=== PATIENT | female | born 1990 | race Caucasian/White ===

== ENCOUNTER 2022-05-21 06:38 | Inpatient (IN) ==
[2022-05-21] MEDS: Ringers Solution, Lactated 1,000 ML IVC SCH ×3 (05:16→15:14)
[2022-05-21 05:38] LABS: Basophils % 0.1 %; Eosinophils % 0.4 %; Hematocrit 37.6 % (35.3-44.9); Hemoglobin 11.8 g/dL (11.5-15.4); Immature Granulocytes % 0.6 % (0-4); Lymphocytes % 10.9 %; Mean Corpuscular HGB Conc 31.4 g/dL (31.6-35.5); Mean Corpuscular Volume 79.7 fL (83.0-100.0); Mean Platelet Volume 10.9 fL (9.4-12.4); Monocytes # 0.5 K/mcL (0.0-1.3); Monocytes % 5.9 %; Neutrophils # 7.4 K/mcL (1.6-8.9); Platelet Count 237 K/mcL (140-400); Red Blood Count 4.72 M/mcL (3.82-4.97); Red Cell Distribution Width 15.6 % (11.5-14.5); Segmented Neutrophils % 82.1 %; White Blood Count 9.1 K/mcL (4.3-11.1)
[2022-05-21 05:45] LABS: Amphetamine Screen,Urine Negative ng/mL (Cutoff=1000); Barbiturate Screen,Urine Negative ng/mL (Cutoff=200); Benzodiazepines Screen,Urine Negative ng/mL (Cutoff=200); Cannabinoid Screen,Urine Negative ng/mL (Cutoff = 50); Cocaine Screen,Urine Negative ng/mL (Cutoff= 300); Opiate Screen,Urine Negative ng/mL (Cutoff=300); Phencyclidine Screen,Urine Negative ng/mL (Cutoff=25)
[~2022-05-21 06:38] MED LIST: *HR* Nalbuphine 10 MG/ML AMPUL IV ONE; Famotidine 20 MG/2 ML VIAL IVP PRN; Metoclopramide 10 MG/2 ML VIAL IVP PRN; Naloxone 0.4 MG/ML INJ IVP PRN
[2022-05-21] MEDS ORDERED: EPHEDrine 50 MG/ML VIAL IVP PRN (06:51)
[2022-05-21] MEDS ORDERED: Epidural Premix (fent/bupiv) 110 ML EP SCH (07:00)
[2022-05-21] MEDS ORDERED: Oxytocin 30 UNIT/503 ML BAG IVC SCH ×2 (12:45→21:40)
[2022-05-21] MEDS ORDERED: Ondansetron ODT 4 MG TAB.RAPDIS SL PRN (21:40)
[2022-05-21] MEDS ORDERED: Benzocaine/Menthol 56 GM AEROSOL SPRAY TP PRN (21:40)
[2022-05-21] MEDS ORDERED: OXYTOCIN/RINGERS LACTATE 10 UNIT/166.6 ML BAG IVC ONE (21:40)
[2022-05-21] MEDS ORDERED: Lanolin 7 G OINT...G. TP PRN (21:40)
[2022-05-21] MEDS: Acetaminophen 325 MG TABLET PO SCH (23:00)
[2022-05-21] MEDS: Ibuprofen 600 MG TABLET PO SCH (23:00)
[2022-05-22] MEDS ORDERED: Prenatal Vit/FA 1 EACH TABLET PO SCH (09:00)
[2022-05-22] MEDS: Acetaminophen 325 MG TABLET PO SCH (09:46)
[2022-05-22] MEDS ORDERED: Etonogestrel 68 MG IMPLANT IL ONE (09:47)
[2022-05-22] MEDS ORDERED: Lidocaine/EPI 1:100k 2% 20 ML VIAL INFILT ONE (09:47)
[2022-05-22] MEDS: Ibuprofen 600 MG TABLET PO SCH (09:47)
[2022-05-22 20:03] VITALS: BP 91/53; PULSE 79; TEMP 97.6; O2SAT 99
== END 2022-05-22 21:45 | disposition home or self-care (01) | DRG 560 ==
LOC: 1NENULAB → 1NENUOBS 21:33
PROVIDERS: ADMIT Obstetrics & Gynecology; ATTEND Obstetrics & Gynecology